=== PATIENT | female | born 1990 | race Hispanic/Latino ===

== ENCOUNTER 2016-11-19 22:28 | Observation (INO) | payer MEDICAID ==
[2016-11-19] MEDS ORDERED: LACTATED RINGERS 1,000 ML ONE (23:42)
[2016-11-20] MEDS ORDERED: VISTARIL PO ONE (00:17)
[2016-11-20] MEDS ORDERED: STADOL ONE (01:25)
[2016-11-20] MEDS ORDERED: LACTATED RINGERS 1,000 ML ONE (01:30)
[2016-11-20] MEDS ORDERED: STADOL IV ONE (02:00)
[2016-11-20] MEDS ORDERED: LACTATED RINGERS 1,000 ML IV SCH ×2 (03:00→04:00)
[2016-11-20] MEDS ORDERED: TYLENOL PO PRN (03:27)
[2016-11-20] MEDS ORDERED: COLACE PO PRN (03:27)
[2016-11-20] MEDS ORDERED: VISTARIL PO PRN (03:36)
[2016-11-20] MEDS ORDERED: MORPHINE IV PRN (03:37)
[2016-11-20 04:02] LABS: Basophils % (Auto) 0.4 % (0.0-1.8); Eosinophils % (Auto) 0.9 % (0.0-4.3); Hematocrit 30.3 % (30.3-42.9); Hemoglobin 10.2 gm/dl (10.1-14.3); Mean Corpuscular HGB Conc 34 % (30-34); Mean Corpuscular Hemoglobin 29 pg (28-32); Mean Corpuscular Volume 86 fl (79-97); Platelet Count 243 K/mm3 (140-440); Red Blood Count 3.54 M/mm3 (3.65-5.03); Red Cell Distribution Width 15.2 % (13.2-15.2); White Blood Count 8.1 K/mm3 (4.5-11.0)
--- NOTE | 2016-11-20 04:42 | Event Note ---
Date: 11/20/16 26 yo A1 (one late , one c/s) who has been seen in our office for late care, only since 11/01/2016. She was initially dated that day by an ultrasound at 33 weeks and 2 days and now would be 36 weeks 0 days with an ultrasound estimated delivery date of 12/18/16. I personally saw her for the first time yesterday afternoon. Essentially, she is a patient who had 2 vaginal deliveries and then had a for an extraneous reason and she is now a previous section in the third trimester of uncertain dates. In the office, she was complaining of persistent contractions and pain, although she was having irregular contractions. Her abdomen was completely soft. She only had 1 or 2 contractions in the office that she was walking in the [place] as though she was in active labor. The wide-based gait. An ultrasound was done and was within normal limits and she was reassured and sent home. Despite her complaint of pain , which she mostly called contractions, but were not. I checked her cervix. Attention was 1 cm at the internal os, 30- 50% effaced, -3, and posterior. I gave her a Vistaril prescription to take home She presented tonight to triage after several phone calls again with the same complaints. In addition, I spoke to her father who was almost distraught. I did inquire from him whether she had evidence any drug problems and he was very offended by this although the labor and delivery triage nurse had had the same idea that it appeared she was exhibiting very unusual behavior suggestive of drug-seeking--although the patient never asked for any drugs. She just thinks that something is wrong. Her other pregnancies were not like this. She thinks that her due date is November 20 by [facility] ultrasound that she cannot produce. She is not seeking drugs, but she is seeking what appears to be an early . Patient was evaluated in triage was not having contractions, but continued to complain off and on of pain and was doing things like pushing to make it look like she was having contractions on the monitor. tracing was category 1. Cervical check by the nurse revealed no change from my check in the office. Out of a sense of frustration, she is admitted for antepartum observation to run a few labs and repeat her ultrasound and attempt to see if we can get her to sleep with some pain medicine. I'm worried that this point that I'm not able to be objective and will wait and let the morning team reevaluate her.
[2016-11-20 04:44] LABS: Urine Drugs of Abuse Note Disclamer
[2016-11-20 04:52] LABS: Alanine Aminotransferase 8 units/L (7-56); Albumin 3.2 g/dL (3.9-5); Albumin/Globulin Ratio 1.3 %; Alkaline Phosphatase 91 units/L (35-129); Anion Gap 19 mmol/L; BUN/Creatinine Ratio 13; Blood Urea Nitrogen 4 mg/dL (7-17); Calcium 8.3 mg/dL (8.4-10.2); Carbon Dioxide 21 mmol/L (22-30); Chloride 104.7 mmol/L (98-107); Glucose 78 mg/dL (65-100); Potassium 3.7 mmol/L (3.6-5.0); Sodium 141 mmol/L (137-145); Total Protein 5.7 g/dL (6.3-8.2)
--- NOTE | 2016-11-20 07:33 | Progress Note ---
Assessment and Plan 26y/o @ 36+0 weeks, patient resting in dark room on right side, states she is still having pressure in abdomen that is "painful." reports active movement, denies leaking, vag bleeding or ctx. toco reviewed with possibly 1 ctx in last hour, fht intermittently on the monitor but reviewed cat 1 throughout the night. Plan to get NST, recheck and if unchanged will d/c home today with f/u in office in [address] Sanabria consulted. - Patient Problems (1) 36 weeks gestation of Current Visit: Yes Status: Acute (2) Discomfort during Current Visit: Yes Status: Acute Plan to address problem: tylenol rest maternity support belt Subjective - Subjective Date of service: 11/20/16 Principal diagnosis: IUP @ 36w0d, prev c/s Patient reports: movement normal, other (c/o pressure that is "painful"), no new complaints, no loss of fluid, no vaginal bleeding, no contractions Objective - Vital Signs Vital Signs: Vital Signs - 12hr 11/19/16 11/19/16 11/19/16 22:47 23:19 23:56 Temperature Pulse Rate 86 91 H 80 Respiratory Rate Blood Pressure 112/67 116/66 111/69 Blood Pressure [Right] O2 Sat by Pulse Oximetry 11/20/16 11/20/16 11/20/16 01:48 02:56 03:01 Temperature Pulse Rate 71 83 Respiratory 20 Rate Blood Pressure 117/66 Blood Pressure [Right] O2 Sat by Pulse 99 96 Oximetry 11/20/16 04:26 Temperature 98.1 F Pulse Rate 67 Respiratory 16 Rate Blood Pressure Blood Pressure 113/63 [Right] O2 Sat by Pulse Oximetry - Exam Breasts: normal Cardiovascular: Regular rate Lungs: Clear to auscultation, Normal air movement Abdomen: Present: normal appearance, soft Uterus: Present: normal FHR: auscultation normal Uterine Contraction Monitor Mode: External Uterine Contraction Pattern: Absent Uterine Tone Measurement Phase: Resting Extremities: normal - Labs Labs: Abnormal Labs 11/20/16 11/20/16 03:39 03:39 RBC 3.54 L Garrard % (Auto) 8.2 H Carbon Dioxide 21 L BUN 4 L Creatinine 0.3 L Calcium 8.3 L Total Protein 5.7 L Albumin 3.2 L Laboratory Results - last 24 hr 11/20/16 11/20/16 11/20/16 03:27 03:39 03:39 WBC 8.1 RBC 3.54 L Hgb 10.2 Hct 30.3 MCV 86 MCH 29 MCHC 34 RDW 15.2 Plt Count 243 Lymph % (Auto) 32.0 Garrard % (Auto) 8.2 H Eos % (Auto) 0.9 Baso % (Auto) 0.4 Lymph # 2.6 Garrard # 0.7 Eos # 0.1 Baso # 0.0 Seg Neutrophils % 58.5 Seg Neutrophils # 4.7 Sodium 141 Potassium 3.7 Chloride 104.7 Carbon Dioxide 21 L Anion Gap 19 BUN 4 L Creatinine 0.3 L Estimated GFR > 60 BUN/Creatinine Ratio 13 Glucose 78 Calcium 8.3 L Total Bilirubin 0.30 AST 11 ALT 8 Alkaline Phosphatase 91 Total Protein 5.7 L Albumin 3.2 L Albumin/Globulin Ratio 1.3 Urine Opiates Screen Urine Methadone Screen Ur Barbiturates Screen Ur Phencyclidine Scrn Ur Amphetamines Screen U Benzodiazepines Scrn Urine Cocaine Screen U Marijuana (THC) Screen Drugs of Abuse Note Blood Type O POSITIVE Antibody Screen Negative 11/20/16 04:30 WBC RBC Hgb Hct MCV MCH MCHC RDW Plt Count Lymph % (Auto) Garrard % (Auto) Eos % (Auto) Baso % (Auto) Lymph # Garrard # Eos # Baso # Seg Neutrophils % Seg Neutrophils # Sodium Potassium Chloride Carbon Dioxide Anion Gap BUN Creatinine Estimated GFR BUN/Creatinine Ratio Glucose Calcium Total Bilirubin AST ALT Alkaline Phosphatase Total Protein Albumin Albumin/Globulin Ratio Urine Opiates Screen Presumptive negative Urine Methadone Screen Presumptive negative Ur Barbiturates Screen Presumptive negative Ur Phencyclidine Scrn Presumptive negative Ur Amphetamines Screen Presumptive negative U Benzodiazepines Scrn Presumptive negative Urine Cocaine Screen Presumptive negative U Marijuana (THC) Screen Presumptive negative Drugs of Abuse Note Disclamer Blood Type Antibody Screen
--- NOTE | 2016-11-20 07:55 | Progress Note ---
Addendum entered and electronically signed by EDNA CHAVIRA CNM 07:58: Dr. Sanabria and RN Eleazar in room during discussion, opportunity provided for questions. All questions addressed. Patient denies feeling ctx. Detailed d/c instructions provided to patient. Patient denies having any additional questions and states she has appointment in office Saturday. Original Note: <EDNA CHAVIRA - Last Filed: 11/20/16 07:54> Assessment and Plan will d/c home, f/u in office next week - Patient Problems (1) 36 weeks gestation of Current Visit: Yes Status: Acute (2) Discomfort during Current Visit: Yes Status: Acute Subjective - Subjective Date of service: 11/20/16 Principal diagnosis: IUP @ 36w0d, prev c/s Patient reports: movement normal, other (c/o pressure that is "painful"), no new complaints, no loss of fluid, no vaginal bleeding, no contractions Objective - Vital Signs Vital Signs: Vital Signs - 12hr 11/19/16 11/19/16 11/19/16 22:47 23:19 23:56 Temperature Pulse Rate 86 91 H 80 Respiratory Rate Blood Pressure 112/67 116/66 111/69 Blood Pressure [Right] O2 Sat by Pulse Oximetry 11/20/16 11/20/16 11/20/16 01:48 02:56 03:01 Temperature Pulse Rate 71 83 Respiratory 20 Rate Blood Pressure 117/66 Blood Pressure [Right] O2 Sat by Pulse 99 96 Oximetry 11/20/16 11/20/16 04:26 07:27 Temperature 98.1 F Pulse Rate 67 63 Respiratory 16 Rate Blood Pressure 108/61 Blood Pressure 113/63 [Right] O2 Sat by Pulse Oximetry - Exam FHR: category 1 Cervical Dilatation: 1 Cervical Effacement Percentage: 30 station: -3 Uterine Contraction Pattern: Absent - Labs Labs: Abnormal Labs 11/20/16 11/20/16 03:39 03:39 RBC 3.54 L Cole % (Auto) 8.2 H Carbon Dioxide 21 L BUN 4 L Creatinine 0.3 L Calcium 8.3 L Total Protein 5.7 L Albumin 3.2 L Laboratory Results - last 24 hr 11/20/16 11/20/16 11/20/16 03:27 03:39 03:39 WBC 8.1 RBC 3.54 L Hgb 10.2 Hct 30.3 MCV 86 MCH 29 MCHC 34 RDW 15.2 Plt Count 243 Lymph % (Auto) 32.0 Cole % (Auto) 8.2 H Eos % (Auto) 0.9 Baso % (Auto) 0.4 Lymph # 2.6 Cole # 0.7 Eos # 0.1 Baso # 0.0 Seg Neutrophils % 58.5 Seg Neutrophils # 4.7 Sodium 141 Potassium 3.7 Chloride 104.7 Carbon Dioxide 21 L Anion Gap 19 BUN 4 L Creatinine 0.3 L Estimated GFR > 60 BUN/Creatinine Ratio 13 Glucose 78 Calcium 8.3 L Total Bilirubin 0.30 AST 11 ALT 8 Alkaline Phosphatase 91 Total Protein 5.7 L Albumin 3.2 L Albumin/Globulin Ratio 1.3 Urine Opiates Screen Urine Methadone Screen Ur Barbiturates Screen Ur Phencyclidine Scrn Ur Amphetamines Screen U Benzodiazepines Scrn Urine Cocaine Screen U Marijuana (THC) Screen Drugs of Abuse Note Blood Type O POSITIVE Antibody Screen Negative 11/20/16 04:30 WBC RBC Hgb Hct MCV MCH MCHC RDW Plt Count Lymph % (Auto) Cole % (Auto) Eos % (Auto) Baso % (Auto) Lymph # Cole # Eos # Baso # Seg Neutrophils % Seg Neutrophils # Sodium Potassium Chloride Carbon Dioxide Anion Gap BUN Creatinine Estimated GFR BUN/Creatinine Ratio Glucose Calcium Total Bilirubin AST ALT Alkaline Phosphatase Total Protein Albumin Albumin/Globulin Ratio Urine Opiates Screen Presumptive negative Urine Methadone Screen Presumptive negative Ur Barbiturates Screen Presumptive negative Ur Phencyclidine Scrn Presumptive negative Ur Amphetamines Screen Presumptive negative U Benzodiazepines Scrn Presumptive negative Urine Cocaine Screen Presumptive negative U Marijuana (THC) Screen Presumptive negative Drugs of Abuse Note Disclamer Blood Type Antibody Screen <ABAD SANABRIA - Last Filed: 11/20/16 09:47> Assessment and Plan - Patient Problems (1) Discomfort during Current Visit: Yes Status: Acute Plan to address problem: Late entry: After Vonda Chavira spoke with her with me present the patient requested to speak wiht me alone. She proceed to complain about RN care. The L& D transitional care manager came into to the room as requested to address her complaints. She then proceed to again state she wants to have her C/S now because of her discomfort. Again explained at this time she has no indication for delivery. Desires a second opinion. The L&D transitional care manager states she will s/w the director to attempt assist her. I proceeded to performed the scheduled c/s. 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 Her records were printed and given to her. Objective - Vital Signs Vital Signs: Vital Signs - 12hr 11/19/16 11/19/16 11/19/16 22:47 23:19 23:56 Temperature Pulse Rate 86 91 H 80 Respiratory Rate Blood Pressure 112/67 116/66 111/69 Blood Pressure [Right] O2 Sat by Pulse Oximetry 11/20/16 11/20/16 11/20/16 01:48 02:56 03:01 Temperature Pulse Rate 71 83 Respiratory 20 Rate Blood Pressure 117/66 Blood Pressure [Right] O2 Sat by Pulse 99 96 Oximetry 11/20/16 11/20/16 11/20/16 04:26 07:27 07:55 Temperature 98.1 F 98.7 F Pulse Rate 67 63 Respiratory 16 Rate Blood Pressure 108/61 Blood Pressure 113/63 [Right] O2 Sat by Pulse Oximetry 11/20/16 11/20/16 07:59 08:22 Temperature Pulse Rate 71 Respiratory 20 Rate Blood Pressure 100/59 Blood Pressure [Right] O2 Sat by Pulse Oximetry - Labs Labs: Abnormal Labs 11/20/16 11/20/16 03:39 03:39 RBC 3.54 L Cole % (Auto) 8.2 H Carbon Dioxide 21 L BUN 4 L Creatinine 0.3 L Calcium 8.3 L Total Protein 5.7 L Albumin 3.2 L Laboratory Results - last 24 hr 11/20/16 11/20/16 11/20/16 03:27 03:39 03:39 WBC 8.1 RBC 3.54 L Hgb 10.2 Hct 30.3 MCV 86 MCH 29 MCHC 34 RDW 15.2 Plt Count 243 Lymph % (Auto) 32.0 Cole % (Auto) 8.2 H Eos % (Auto) 0.9 Baso % (Auto) 0.4 Lymph # 2.6 Cole # 0.7 Eos # 0.1 Baso # 0.0 Seg Neutrophils % 58.5 Seg Neutrophils # 4.7 Sodium 141 Potassium 3.7 Chloride 104.7 Carbon Dioxide 21 L Anion Gap 19 BUN 4 L Creatinine 0.3 L Estimated GFR > 60 BUN/Creatinine Ratio 13 Glucose 78 Calcium 8.3 L Total Bilirubin 0.30 AST 11 ALT 8 Alkaline Phosphatase 91 Total Protein 5.7 L Albumin 3.2 L Albumin/Globulin Ratio 1.3 Urine Opiates Screen Urine Methadone Screen Ur Barbiturates Screen Ur Phencyclidine Scrn Ur Amphetamines Screen U Benzodiazepines Scrn Urine Cocaine Screen U Marijuana (THC) Screen Drugs of Abuse Note Blood Type O POSITIVE Antibody Screen Negative 11/20/16 04:30 WBC RBC Hgb Hct MCV MCH MCHC RDW Plt Count Lymph % (Auto) Cole % (Auto) Eos % (Auto) Baso % (Auto) Lymph # Cole # Eos # Baso # Seg Neutrophils % Seg Neutrophils # Sodium Potassium Chloride Carbon Dioxide Anion Gap BUN Creatinine Estimated GFR BUN/Creatinine Ratio Glucose Calcium Total Bilirubin AST ALT Alkaline Phosphatase Total Protein Albumin Albumin/Globulin Ratio Urine Opiates Screen Presumptive negative Urine Methadone Screen Presumptive negative Ur Barbiturates Screen Presumptive negative Ur Phencyclidine Scrn Presumptive negative Ur Amphetamines Screen Presumptive negative U Benzodiazepines Scrn Presumptive negative Urine Cocaine Screen Presumptive negative U Marijuana (THC) Screen Presumptive negative Drugs of Abuse Note Disclamer Blood Type Antibody Screen
[2016-11-20 07:57] VITALS: BP 100/59
--- NOTE | 2016-11-20 07:57 | Discharge Summary ---
Providers - Providers Date of Admission: 11/20/16 03:48 Date of discharge: 11/20/16 Attending physician: MOE PIZARRO Primary care physician: MOE PIZARRO Hospitalization Reason for admission: observation Hospital course: observation for abdominal discomfort @ 36w. Condition at discharge: Good Disposition: DC-01 TO HOME OR SELFCARE - Discharge Diagnoses (1) 36 weeks gestation of Status: Acute (2) Discomfort during Status: Acute Plan - Provider Discharge Summary Activity: routine Diet: routine Instructions: routine Additional instructions: [] Smoking cessation referral if applicable(refer to patient education folder for contact #) [] Refer to [facility] Booklet Call your doctor immediately for: * Fever > 100.5 * Heavy vaginal bleeding ( >1 pad per hour) * Severe persistent headache * Shortness of breath * Reddened, hot, painful area to leg or breast * Drainage or odor from incision. * Keep incision clean and dry at all times and follow doctor's instructions regarding bathing/showering - Follow up plan Follow up: MOE PIZARRO MD [Primary Care Provider] - 7 Days (Please call [phone] for any questions or concerns. keep your next scheduled appointment next week. ) Forms: [facility] Discharge Summary
[2016-11-20] MEDS ORDERED: TYLENOL PO ONE (08:30)
[2016-11-20] MEDS ORDERED: PRENATAL VITAMIN PO SCH (10:00)
== END 2016-11-20 10:17 | disposition home or self-care (01) ==
LOC: TRG 22:28 → LD 11-20 03:48
PROVIDERS: ADMIT Obstetrics & Gynecology; ATTEND Obstetrics & Gynecology
DX: O26.893 Other specified pregnancy related conditions, third trimester (principal); R10.9 Unspecified abdominal pain; Z3A.36 36 weeks gestation of pregnancy
CPT/HCPCS: 36415; 80053; 80307; 85025; 86850; 86900; 86901; 96361; 96374; G0378; J0595; J2270; J7120; 96360; Q0177

== ENCOUNTER 2016-11-25 16:09 | Outpatient (CLI) | payer MEDICAID ==
[2016-11-25 16:13] VITALS: BP 122/65
== END 2016-11-25 17:15 | disposition home or self-care (01) ==
LOC: TRG 16:09
PROVIDERS: ATTEND Obstetrics & Gynecology
DX: O47.03 False labor before 37 completed weeks of gestation, third trimester (principal); Z87.891 Personal history of nicotine dependence; Z3A.36 36 weeks gestation of pregnancy
CPT/HCPCS: 59025

== ENCOUNTER 2016-12-10 21:56 | Outpatient (CLI) | payer MEDICAID ==
[2016-12-12 12:46] VITALS: BP 116/71
== END 2016-12-10 23:59 | disposition home or self-care (01) ==
LOC: TRG 21:56
PROVIDERS: ATTEND Obstetrics & Gynecology
DX: O99.333 Smoking (tobacco) complicating pregnancy, third trimester (principal); O47.1 False labor at or after 37 completed weeks of gestation; Z3A.39 39 weeks gestation of pregnancy